=== PATIENT | female | born 1935 | race Caucasian/White ===

== ENCOUNTER → 2020-03-19 | Outpatient (CLI) | payer OTHER, BC | LOC: HYPER 09:12 | PROVIDERS: ATTEND Emergency Medicine | DX: T81.89XA Other complications of procedures, not elsewhere classified, initial encounter (principal); E10.622 Type 1 diabetes mellitus with other skin ulcer; I87.331 Chronic venous hypertension (idiopathic) with ulcer and inflammation of right lower extremity; L97.812 Non-pressure chronic ulcer of other part of right lower leg with fat layer exposed; I87.322 Chronic venous hypertension (idiopathic) with inflammation of left lower extremity; R60.0 Localized edema; L30.9 Dermatitis, unspecified; L84 Corns and callosities; E03.9 Hypothyroidism, unspecified; K21.9 Gastro-esophageal reflux disease without esophagitis; E21.3 Hyperparathyroidism, unspecified; M85.80 Other specified disorders of bone density and structure, unspecified site; E66.9 Obesity, unspecified; Z85.89 Personal history of malignant neoplasm of other organs and systems; Z68.33 Body mass index [BMI] 33.0-33.9, adult; Z87.891 Personal history of nicotine dependence; Z79.82 Long term (current) use of aspirin; Y83.8 Other surgical procedures as the cause of abnormal reaction of the patient, or of later complication, without mention of misadventure at the time of the procedure; Y92.238 Other place in hospital as the place of occurrence of the external cause ==

== ENCOUNTER → 2020-03-27 | Outpatient (CLI) | payer OTHER, BC | LOC: HYPER 08:58 | PROVIDERS: ATTEND Emergency Medicine | DX: T81.89XD Other complications of procedures, not elsewhere classified, subsequent encounter (principal); E10.622 Type 1 diabetes mellitus with other skin ulcer; I87.331 Chronic venous hypertension (idiopathic) with ulcer and inflammation of right lower extremity; L97.812 Non-pressure chronic ulcer of other part of right lower leg with fat layer exposed; I87.322 Chronic venous hypertension (idiopathic) with inflammation of left lower extremity; L30.9 Dermatitis, unspecified; L84 Corns and callosities; R21 Rash and other nonspecific skin eruption; R60.0 Localized edema; E03.9 Hypothyroidism, unspecified; E21.3 Hyperparathyroidism, unspecified; E66.9 Obesity, unspecified; K21.9 Gastro-esophageal reflux disease without esophagitis; M85.80 Other specified disorders of bone density and structure, unspecified site; Z85.89 Personal history of malignant neoplasm of other organs and systems; Z68.33 Body mass index [BMI] 33.0-33.9, adult; Z87.891 Personal history of nicotine dependence; Z79.82 Long term (current) use of aspirin; Z79.4 Long term (current) use of insulin; Y83.8 Other surgical procedures as the cause of abnormal reaction of the patient, or of later complication, without mention of misadventure at the time of the procedure ==

== ENCOUNTER → 2020-04-06 | Outpatient (CLI) | payer OTHER, BC | LOC: HYPER 14:57 | PROVIDERS: ATTEND Emergency Medicine | DX: T81.89XD Other complications of procedures, not elsewhere classified, subsequent encounter (principal); E10.622 Type 1 diabetes mellitus with other skin ulcer; I87.331 Chronic venous hypertension (idiopathic) with ulcer and inflammation of right lower extremity; L97.812 Non-pressure chronic ulcer of other part of right lower leg with fat layer exposed; I87.322 Chronic venous hypertension (idiopathic) with inflammation of left lower extremity; L30.9 Dermatitis, unspecified; L84 Corns and callosities; R21 Rash and other nonspecific skin eruption; R60.0 Localized edema; E03.9 Hypothyroidism, unspecified; E21.3 Hyperparathyroidism, unspecified; E66.9 Obesity, unspecified; K21.9 Gastro-esophageal reflux disease without esophagitis; M85.80 Other specified disorders of bone density and structure, unspecified site; Z85.89 Personal history of malignant neoplasm of other organs and systems; Z68.33 Body mass index [BMI] 33.0-33.9, adult; Z87.891 Personal history of nicotine dependence; Z79.82 Long term (current) use of aspirin; Z79.4 Long term (current) use of insulin; Y83.8 Other surgical procedures as the cause of abnormal reaction of the patient, or of later complication, without mention of misadventure at the time of the procedure ==

== ENCOUNTER → 2020-04-20 | Outpatient (CLI) | payer OTHER, BC | LOC: HYPER 10:26 | PROVIDERS: ATTEND Emergency Medicine | DX: T81.89XD Other complications of procedures, not elsewhere classified, subsequent encounter (principal); E10.622 Type 1 diabetes mellitus with other skin ulcer; I87.331 Chronic venous hypertension (idiopathic) with ulcer and inflammation of right lower extremity; L97.812 Non-pressure chronic ulcer of other part of right lower leg with fat layer exposed; I87.322 Chronic venous hypertension (idiopathic) with inflammation of left lower extremity; L30.9 Dermatitis, unspecified; L84 Corns and callosities; R21 Rash and other nonspecific skin eruption; R60.0 Localized edema; E03.9 Hypothyroidism, unspecified; E21.3 Hyperparathyroidism, unspecified; E66.9 Obesity, unspecified; K21.9 Gastro-esophageal reflux disease without esophagitis; M85.80 Other specified disorders of bone density and structure, unspecified site; Z85.89 Personal history of malignant neoplasm of other organs and systems; Z68.33 Body mass index [BMI] 33.0-33.9, adult; Z87.891 Personal history of nicotine dependence; Z79.82 Long term (current) use of aspirin; Z79.4 Long term (current) use of insulin; Y83.8 Other surgical procedures as the cause of abnormal reaction of the patient, or of later complication, without mention of misadventure at the time of the procedure ==

== ENCOUNTER → 2020-05-04 | Outpatient (CLI) | payer OTHER, BC | LOC: HYPER 13:16 | PROVIDERS: ATTEND Emergency Medicine | DX: T81.89XD Other complications of procedures, not elsewhere classified, subsequent encounter (principal); E10.622 Type 1 diabetes mellitus with other skin ulcer; I87.331 Chronic venous hypertension (idiopathic) with ulcer and inflammation of right lower extremity; L97.812 Non-pressure chronic ulcer of other part of right lower leg with fat layer exposed; I87.322 Chronic venous hypertension (idiopathic) with inflammation of left lower extremity; L30.9 Dermatitis, unspecified; L84 Corns and callosities; R21 Rash and other nonspecific skin eruption; R60.0 Localized edema; E03.9 Hypothyroidism, unspecified; E21.3 Hyperparathyroidism, unspecified; E66.9 Obesity, unspecified; K21.9 Gastro-esophageal reflux disease without esophagitis; M85.80 Other specified disorders of bone density and structure, unspecified site; Z85.89 Personal history of malignant neoplasm of other organs and systems; Z68.33 Body mass index [BMI] 33.0-33.9, adult; Z87.891 Personal history of nicotine dependence; Z79.82 Long term (current) use of aspirin; Z79.4 Long term (current) use of insulin; Y83.8 Other surgical procedures as the cause of abnormal reaction of the patient, or of later complication, without mention of misadventure at the time of the procedure ==

== ENCOUNTER → 2020-05-25 | Outpatient (CLI) | payer OTHER, BC | LOC: HYPER 10:47 | PROVIDERS: ATTEND Emergency Medicine | DX: T81.89XD Other complications of procedures, not elsewhere classified, subsequent encounter (principal); E10.622 Type 1 diabetes mellitus with other skin ulcer; I87.331 Chronic venous hypertension (idiopathic) with ulcer and inflammation of right lower extremity; L97.812 Non-pressure chronic ulcer of other part of right lower leg with fat layer exposed; I87.322 Chronic venous hypertension (idiopathic) with inflammation of left lower extremity; L30.9 Dermatitis, unspecified; L84 Corns and callosities; R21 Rash and other nonspecific skin eruption; R60.0 Localized edema; E03.9 Hypothyroidism, unspecified; E21.3 Hyperparathyroidism, unspecified; E66.9 Obesity, unspecified; K21.9 Gastro-esophageal reflux disease without esophagitis; M85.80 Other specified disorders of bone density and structure, unspecified site; Z85.89 Personal history of malignant neoplasm of other organs and systems; Z68.33 Body mass index [BMI] 33.0-33.9, adult; Z87.891 Personal history of nicotine dependence; Z79.82 Long term (current) use of aspirin; Z79.4 Long term (current) use of insulin; Y83.8 Other surgical procedures as the cause of abnormal reaction of the patient, or of later complication, without mention of misadventure at the time of the procedure ==

== ENCOUNTER → 2020-06-09 | Outpatient (CLI) | payer OTHER, BC | LOC: HYPER 12:44 | PROVIDERS: ATTEND Emergency Medicine | DX: T81.89XD Other complications of procedures, not elsewhere classified, subsequent encounter (principal); E10.622 Type 1 diabetes mellitus with other skin ulcer; I87.331 Chronic venous hypertension (idiopathic) with ulcer and inflammation of right lower extremity; L97.812 Non-pressure chronic ulcer of other part of right lower leg with fat layer exposed; I87.322 Chronic venous hypertension (idiopathic) with inflammation of left lower extremity; L30.9 Dermatitis, unspecified; L84 Corns and callosities; R21 Rash and other nonspecific skin eruption; R60.0 Localized edema; E03.9 Hypothyroidism, unspecified; E21.3 Hyperparathyroidism, unspecified; E66.9 Obesity, unspecified; K21.9 Gastro-esophageal reflux disease without esophagitis; M85.80 Other specified disorders of bone density and structure, unspecified site; Z85.89 Personal history of malignant neoplasm of other organs and systems; Z68.33 Body mass index [BMI] 33.0-33.9, adult; Z87.891 Personal history of nicotine dependence; Z79.82 Long term (current) use of aspirin; Z79.4 Long term (current) use of insulin; Y83.8 Other surgical procedures as the cause of abnormal reaction of the patient, or of later complication, without mention of misadventure at the time of the procedure ==

== ENCOUNTER → 2020-06-23 | Outpatient (CLI) | payer OTHER, BC | LOC: HYPER 08:52 | PROVIDERS: ATTEND Emergency Medicine | DX: T81.89XD Other complications of procedures, not elsewhere classified, subsequent encounter (principal); E10.622 Type 1 diabetes mellitus with other skin ulcer; I87.331 Chronic venous hypertension (idiopathic) with ulcer and inflammation of right lower extremity; L97.812 Non-pressure chronic ulcer of other part of right lower leg with fat layer exposed; I87.322 Chronic venous hypertension (idiopathic) with inflammation of left lower extremity; L30.9 Dermatitis, unspecified; L84 Corns and callosities; R21 Rash and other nonspecific skin eruption; R60.0 Localized edema; E03.9 Hypothyroidism, unspecified; E21.3 Hyperparathyroidism, unspecified; E66.9 Obesity, unspecified; K21.9 Gastro-esophageal reflux disease without esophagitis; M85.80 Other specified disorders of bone density and structure, unspecified site; Z85.89 Personal history of malignant neoplasm of other organs and systems; Z68.33 Body mass index [BMI] 33.0-33.9, adult; Z87.891 Personal history of nicotine dependence; Z79.82 Long term (current) use of aspirin; Z79.4 Long term (current) use of insulin; Y83.8 Other surgical procedures as the cause of abnormal reaction of the patient, or of later complication, without mention of misadventure at the time of the procedure ==

== ENCOUNTER → 2020-07-07 | Outpatient (CLI) | payer OTHER, BC | LOC: HYPER 14:21 | PROVIDERS: ATTEND Emergency Medicine | DX: T81.89XD Other complications of procedures, not elsewhere classified, subsequent encounter (principal); E10.622 Type 1 diabetes mellitus with other skin ulcer; I87.331 Chronic venous hypertension (idiopathic) with ulcer and inflammation of right lower extremity; L97.812 Non-pressure chronic ulcer of other part of right lower leg with fat layer exposed; I87.322 Chronic venous hypertension (idiopathic) with inflammation of left lower extremity; R60.0 Localized edema; E10.628 Type 1 diabetes mellitus with other skin complications; L30.9 Dermatitis, unspecified; R21 Rash and other nonspecific skin eruption; E03.9 Hypothyroidism, unspecified; K21.9 Gastro-esophageal reflux disease without esophagitis; M85.80 Other specified disorders of bone density and structure, unspecified site; E66.9 Obesity, unspecified; Z68.33 Body mass index [BMI] 33.0-33.9, adult; Z85.89 Personal history of malignant neoplasm of other organs and systems; Z79.82 Long term (current) use of aspirin; Z87.891 Personal history of nicotine dependence; Z79.899 Other long term (current) drug therapy; Y83.8 Other surgical procedures as the cause of abnormal reaction of the patient, or of later complication, without mention of misadventure at the time of the procedure ==

== ENCOUNTER → 2020-07-28 | Outpatient (CLI) | payer OTHER, BC | LOC: HYPER 08:00 | PROVIDERS: ATTEND Emergency Medicine | DX: T81.89XD Other complications of procedures, not elsewhere classified, subsequent encounter (principal); E10.622 Type 1 diabetes mellitus with other skin ulcer; I87.331 Chronic venous hypertension (idiopathic) with ulcer and inflammation of right lower extremity; L97.812 Non-pressure chronic ulcer of other part of right lower leg with fat layer exposed; S61.411A Laceration without foreign body of right hand, initial encounter; I87.322 Chronic venous hypertension (idiopathic) with inflammation of left lower extremity; R60.0 Localized edema; L30.9 Dermatitis, unspecified; R21 Rash and other nonspecific skin eruption; E03.9 Hypothyroidism, unspecified; K21.9 Gastro-esophageal reflux disease without esophagitis; M85.80 Other specified disorders of bone density and structure, unspecified site; E66.9 Obesity, unspecified; Z68.33 Body mass index [BMI] 33.0-33.9, adult; Z85.89 Personal history of malignant neoplasm of other organs and systems; Z79.82 Long term (current) use of aspirin; Z87.891 Personal history of nicotine dependence; Z79.899 Other long term (current) drug therapy; Z79.4 Long term (current) use of insulin; X58.XXXA Exposure to other specified factors, initial encounter; Y93.89 Activity, other specified; Y92.89 Other specified places as the place of occurrence of the external cause; Y99.8 Other external cause status; Y83.8 Other surgical procedures as the cause of abnormal reaction of the patient, or of later complication, without mention of misadventure at the time of the procedure ==

== ENCOUNTER → 2020-08-12 | Outpatient (CLI) | payer OTHER, BC | LOC: HYPER 08:42 | PROVIDERS: ATTEND Emergency Medicine | DX: T81.89XD Other complications of procedures, not elsewhere classified, subsequent encounter (principal); E10.622 Type 1 diabetes mellitus with other skin ulcer; I87.331 Chronic venous hypertension (idiopathic) with ulcer and inflammation of right lower extremity; L97.812 Non-pressure chronic ulcer of other part of right lower leg with fat layer exposed; S61.411D Laceration without foreign body of right hand, subsequent encounter; I87.322 Chronic venous hypertension (idiopathic) with inflammation of left lower extremity; L30.9 Dermatitis, unspecified; R60.0 Localized edema; R21 Rash and other nonspecific skin eruption; E03.9 Hypothyroidism, unspecified; K21.9 Gastro-esophageal reflux disease without esophagitis; M85.80 Other specified disorders of bone density and structure, unspecified site; E66.9 Obesity, unspecified; Z68.33 Body mass index [BMI] 33.0-33.9, adult; Z85.89 Personal history of malignant neoplasm of other organs and systems; Z79.82 Long term (current) use of aspirin; Z87.891 Personal history of nicotine dependence; Z79.4 Long term (current) use of insulin; X58.XXXD Exposure to other specified factors, subsequent encounter; Y83.8 Other surgical procedures as the cause of abnormal reaction of the patient, or of later complication, without mention of misadventure at the time of the procedure ==

== ENCOUNTER → 2020-09-25 | Outpatient (CLI) | payer OTHER, BC | LOC: HYPER 07:58 | PROVIDERS: ATTEND Emergency Medicine Emergency Medical Services | DX: T81.89XD Other complications of procedures, not elsewhere classified, subsequent encounter (principal); E10.622 Type 1 diabetes mellitus with other skin ulcer; I87.331 Chronic venous hypertension (idiopathic) with ulcer and inflammation of right lower extremity; I70.238 Atherosclerosis of native arteries of right leg with ulceration of other part of lower leg; L97.811 Non-pressure chronic ulcer of other part of right lower leg limited to breakdown of skin; S61.411D Laceration without foreign body of right hand, subsequent encounter; I87.322 Chronic venous hypertension (idiopathic) with inflammation of left lower extremity; L30.9 Dermatitis, unspecified; R21 Rash and other nonspecific skin eruption; E03.9 Hypothyroidism, unspecified; R60.0 Localized edema; K21.9 Gastro-esophageal reflux disease without esophagitis; E21.3 Hyperparathyroidism, unspecified; M85.80 Other specified disorders of bone density and structure, unspecified site; E66.9 Obesity, unspecified; Z68.33 Body mass index [BMI] 33.0-33.9, adult; Z85.89 Personal history of malignant neoplasm of other organs and systems; Z87.891 Personal history of nicotine dependence; Z79.82 Long term (current) use of aspirin; Z85.828 Personal history of other malignant neoplasm of skin; Z90.89 Acquired absence of other organs; Z79.899 Other long term (current) drug therapy; X58.XXXD Exposure to other specified factors, subsequent encounter; Y83.8 Other surgical procedures as the cause of abnormal reaction of the patient, or of later complication, without mention of misadventure at the time of the procedure ==

== ENCOUNTER → 2020-10-08 | Outpatient (CLI) | payer OTHER, BC | LOC: HYPER 07:41 | PROVIDERS: ATTEND Emergency Medicine Emergency Medical Services | DX: T81.89XD Other complications of procedures, not elsewhere classified, subsequent encounter (principal); E10.622 Type 1 diabetes mellitus with other skin ulcer; I87.331 Chronic venous hypertension (idiopathic) with ulcer and inflammation of right lower extremity; L97.812 Non-pressure chronic ulcer of other part of right lower leg with fat layer exposed; I87.322 Chronic venous hypertension (idiopathic) with inflammation of left lower extremity; L84 Corns and callosities; E03.9 Hypothyroidism, unspecified; R60.0 Localized edema; K21.9 Gastro-esophageal reflux disease without esophagitis; E21.3 Hyperparathyroidism, unspecified; M85.80 Other specified disorders of bone density and structure, unspecified site; E66.9 Obesity, unspecified; Z68.33 Body mass index [BMI] 33.0-33.9, adult; Z85.89 Personal history of malignant neoplasm of other organs and systems; Z87.891 Personal history of nicotine dependence; Z79.82 Long term (current) use of aspirin; Z79.4 Long term (current) use of insulin; Z85.828 Personal history of other malignant neoplasm of skin; Z90.89 Acquired absence of other organs; Y83.8 Other surgical procedures as the cause of abnormal reaction of the patient, or of later complication, without mention of misadventure at the time of the procedure ==

== ENCOUNTER → 2020-10-29 | Outpatient (CLI) | payer OTHER, BC | LOC: HYPER 08:01 | PROVIDERS: ATTEND Emergency Medicine Emergency Medical Services | DX: T81.89XD Other complications of procedures, not elsewhere classified, subsequent encounter (principal); E10.622 Type 1 diabetes mellitus with other skin ulcer; I87.333 Chronic venous hypertension (idiopathic) with ulcer and inflammation of bilateral lower extremity; L97.812 Non-pressure chronic ulcer of other part of right lower leg with fat layer exposed; L97.821 Non-pressure chronic ulcer of other part of left lower leg limited to breakdown of skin; R60.0 Localized edema; I10 Essential (primary) hypertension; E03.9 Hypothyroidism, unspecified; K21.9 Gastro-esophageal reflux disease without esophagitis; E21.3 Hyperparathyroidism, unspecified; M85.80 Other specified disorders of bone density and structure, unspecified site; E66.9 Obesity, unspecified; Z68.33 Body mass index [BMI] 33.0-33.9, adult; Z79.82 Long term (current) use of aspirin; Z85.89 Personal history of malignant neoplasm of other organs and systems; Z87.891 Personal history of nicotine dependence; Z79.899 Other long term (current) drug therapy; Y83.8 Other surgical procedures as the cause of abnormal reaction of the patient, or of later complication, without mention of misadventure at the time of the procedure ==